=== PATIENT | male | born 1965 | race Native Hawaiian/Other Pacific Islander ===

== ENCOUNTER 2017-01-28 13:05 | Emergency (ER) | payer OTHER ==
[~2017-01-28] VITALS: Ht 180.3 cm; Wt 79.5 kg
[~2017-01-28 13:05] MED LIST: TRAM50 PO; Z.0.NO CURRENT MEDS
[2017-01-28 13:07] VITALS: BP 175/96; PULSE 94; RESP 18; TEMP 99.3; O2SAT 98
[2017-01-28 13:12] VITALS: BP 176/96; PULSE 78; RESP 18
[2017-01-28] MEDS ORDERED: SODIUM CHLORIDE 0.9% FLUSH 10 ML FLUSH IV FLUSH PRN (13:15)
[2017-01-28] MEDS ORDERED: KETOROLAC TROMETHAMINE 30 MG/ML (IVP) VIAL IV PUSH ONE (13:15)
[2017-01-28] MEDS ORDERED: SODIUM CHLOR 0.9% 1000 ML INJ 1,000 ML IV ONE (13:15)
[2017-01-28] MEDS ORDERED: ONDANSETRON HCL 4 MG/2 ML VIAL IV PUSH ONE (13:15)
[2017-01-28 13:44] LABS: CHLORIDE 103 MEQ/L (98-107); POTASSIUM 3.6 MEQ/L (3.5-5.1); SODIUM (NA) 139 MEQ/L (136-145)
[2017-01-28 13:48] LABS: ANION GAP 9 MEQ/L (5-15); BICARBONATE 27.5 MEQ/L (21.0-32.0); BLOOD UREA NITROGEN 16 MG/DL (7-18)
[2017-01-28 13:51] LABS: ALT (GPT) 29 U/L (12-78); AST (GOT) 20 U/L (15-37); GLOMERULAR FILTRATION RATE 58 ML/MIN (>89)
--- NOTE | 2017-01-28 13:51 | PD ---
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 Patient describes the pain to be colicky nature and comes and goes. He has been having bowel movement which is normal. No blood in the stool. He has been nauseous but did not vomit yet. This morning he was at work when he started to feel sick and decided to come to the emergency room. No similar pain in the past. Patient appears to be in some distress. No aggravating or relieving factors identified. Pain is paroxysmal in nature. [facility] Past Medical History Narrative Medical List of his past medical, surgical, social and family history is reviewed from the nursing note. Cardiovascular Problems: Yes (HTN) Hypertension: Yes Social History Alcohol Use: No Tobacco Use: No Substance Use: No Allergies-Medications (Allergen,Severity, Reaction): Coded Allergies: penicillin G (Unverified Allergy, Severe, TACHYCARDIA, 01/28/17) Comments List of his allergies reviewed from the nursing note. Reported Meds & Prescriptions Reported Meds & Active Scripts Active Zofran Odt (Ondansetron Odt) 4 Mg Tab 4 Mg SL Q6HR PRN Hydrocodone-Acetaminophen 5-325 mg Tab 1 Tab PO Q6H PRN Flomax (Tamsulosin HCl) 0.4 Mg Cap 0.4 Mg PO HS Reported Amlodipine (Amlodipine Besylate) 5 Mg Tab 5 Mg PO DAILY Narrative Medication list of his home medications reviewed from the nursing note. Review of Systems Except as stated in HPI: all other systems reviewed are Neg Physical Exam Narrative GENERAL: Awake, alert, no obvious distress SKIN: Focused skin assessment warm/dry. HEAD: Atraumatic. Normocephalic. EYES: Pupils equal and round. No scleral icterus. No injection or drainage. ENT: No nasal bleeding or discharge. Mucous membranes pink and moist. NECK: Trachea midline. No JVD. CARDIOVASCULAR: Regular rate and rhythm. No murmur appreciated. RESPIRATORY: No accessory muscle use. Clear to auscultation. Breath sounds equal bilaterally. GASTROINTESTINAL: Abdomen soft, non-tender, nondistended. Hepatic and splenic margins not palpable. MUSCULOSKELETAL: No obvious deformities. No clubbing. No cyanosis. No edema. NEUROLOGICAL: Awake and alert. No obvious cranial nerve deficits. Motor grossly within normal limits. Normal speech. PSYCHIATRIC: Appropriate mood and affect; insight and judgment normal. Data Data Last Documented VS Vital Signs Date Time Temp Pulse Resp B/P (MAP) Pulse Ox O2 Delivery O2 Flow Rate FiO2 01/28/17 14:42 96 18 169/99 (122) 98 01/28/17 14:08 Room Air 01/28/17 13:07 99.3 Orders Orders Complete Blood Count With Diff (01/28/17 13:11) Comprehensive Metabolic Panel (01/28/17 13:11) Lipase (01/28/17 13:11) Urinalysis - C+S If Indicated (01/28/17 13:11) Ct Abd/Pel W/O Iv Contrast (01/28/17 13:11) Iv Access Insert/Monitor (01/28/17 13:11) Ecg Monitoring (01/28/17 13:11) Oximetry (01/28/17 13:11) Sodium Chloride 0.9% Flush (Ns Flush) (01/28/17 13:15) Ketorolac Inj (Toradol Inj) (01/28/17 13:15) Sodium Chlor 0.9% 1000 Ml Inj (Ns 1000 M (01/28/17 13:15) Ondansetron Inj (Zofran Inj) (01/28/17 13:15) Strain Urine PRN (01/28/17 14:21) Tamsulosin (Flomax) (01/28/17 14:30) Labs Laboratory Tests Test 01/28/17 13:20 White Blood Count 14.4 TH/MM3 Red Blood Count 6.01 MIL/MM3 Hemoglobin 15.7 GM/DL Hematocrit 48.8 % Mean Corpuscular Volume 81.2 FL Mean Corpuscular Hemoglobin 26.2 PG Mean Corpuscular Hemoglobin Concent 32.2 % Red Cell Distribution Width 12.7 % Platelet Count 342 TH/MM3 Mean Platelet Volume 8.5 FL Neutrophils (%) (Auto) 84.2 % Lymphocytes (%) (Auto) 10.9 % Monocytes (%) (Auto) 4.2 % Eosinophils (%) (Auto) 0.3 % Basophils (%) (Auto) 0.4 % Neutrophils # (Auto) 12.1 TH/MM3 Lymphocytes # (Auto) 1.6 TH/MM3 Monocytes # (Auto) 0.6 TH/MM3 Eosinophils # (Auto) 0.0 TH/MM3 Basophils # (Auto) 0.1 TH/MM3 CBC Comment DIFF FINAL Differential Comment Urine Collection Type VOIDED Urine Color YELLOW Urine Turbidity SLIGHT Urine pH 7.0 Urine Specific [place] 1.027 Urine Protein TRACE mg/dL Urine Glucose (UA) NEG mg/dL Urine Ketones NEG mg/dL Urine Occult Blood LARGE Urine Nitrite NEG Urine Bilirubin NEG Urine Leukocyte Esterase NEG Urine RBC 25-49 /hpf Urine WBC 0-2 /hpf Urine Mucus RARE /lpf Microscopic Urinalysis Comment CULT NOT INDICATED Blood Urea Nitrogen 16 MG/DL Creatinine 1.30 MG/DL Random Glucose 127 MG/DL Total Protein 7.8 GM/DL Albumin 3.9 GM/DL Calcium Level 8.7 MG/DL Alkaline Phosphatase 115 U/L Aspartate Amino Transf (AST/SGOT) 20 U/L Alanine Aminotransferase (ALT/SGPT) 29 U/L Total Bilirubin 0.7 MG/DL Sodium Level 139 MEQ/L Potassium Level 3.6 MEQ/L Chloride Level 103 MEQ/L Carbon Dioxide Level 27.5 MEQ/L Anion Gap 9 MEQ/L Estimat Glomerular Filtration Rate 58 ML/MIN Lipase 73 U/L MDM Medical Decision Making Medical Screen Exam Complete: Yes Emergency Medical Condition: Yes Medical Record Reviewed: Yes Differential Diagnosis Acute diverticulitis, renal colic, acute gastroenteritis Narrative Course 1:50 PM awaiting for the blood test results and the CAT scan to be done and resulted. Patient was given IV Zofran and IV fluid bolus. I ordered IV Toradol but he had refused to take it. Patient had a large emesis and says the pain is little better since then. 2:24 PM blood test results show leukocytosis but rest of the test results are within acceptable limit. UA shows hematuria. CT scan was read by the radiologist as 2 mm stone in the UVJ. I went and let Dr. Bautista know about these test results. He was given a copy of all the results as well. He let me know that his pain was completely gone at this point in which case my speculation would be that he has passed the stone into the bladder. He will be given a dose of Flomax and a urine strainer to go home with. Procedures EKG Prior to Arrival: No Diagnosis Primary Impression: Ureteral colic Referrals: Jacob Keith MD 3 days Additional Instructions: Please drink lots of fluid to keep herself hydrated and passage of urine any easy. Take the medication as per the prescription direction. The pain medication is when the pain gets severe. However it'll make you groggy and hence he should not be driving while on it. Return to the ER if the condition worsens or any other new concerns. Follow-up with the urologist whose name and number been given to you. Urinate through the strainer so that when he passed the stone you can collected and take it with you to the urologist for analysis. Med/Other Pt SpecificInfo: Prescription(s) given Scripts Tamsulosin (Flomax) 0.4 Mg Cap 0.4 MG PO HS for Manage Prostate Problems, #10 CAP 0 Refills Prov: Osmany Gomez MD 01/28/17 Disposition: 01 DISCHARGE HOME Condition: Stable Osmany Gomez MD Jan 28, 2017 13:51
[2017-01-28 13:52] LABS: AUTOMATED NEUTROPHIL # 12.1 TH/MM3 (1.8-7.7); BASOPHIL # 0.1 TH/MM3 (0-0.2); BASOPHIL % 0.4 % (0.0-2.0); BLOOD, URINE LARGE (NEG); EOSINOPHIL % 0.3 % (0.0-4.0); GLUCOSE,URINE NEG (NEG); HEMATOCRIT 48.8 % (39.0-51.0); HEMO FLAGS DIFF FINAL; KETONE, URINE NEG (NEG); LYMPH % 10.9 % (9.0-44.0); LYMPHOCYTE # 1.6 TH/MM3 (1.0-4.8); MEAN CELL VOLUME 81.2 FL (80.0-100.0); MEAN CORPUSCULAR HEMOGLOBIN 26.2 PG (27.0-34.0); MEAN CORPUSCULAR HGB CONC 32.2 % (32.0-36.0); MONO % 4.2 % (0.0-8.0); NEUT % 84.2 % (16.0-70.0); NITRITE,URINE NEG (NEG); PLATELET COUNT 342 TH/MM3 (150-450); RED BLOOD COUNT 6.01 MIL/MM3 (4.50-5.90); RED CELL DISTRIBUTION WIDTH 12.7 % (11.6-17.2); TOTAL BILIRUBIN ADULT 0.7 MG/DL (0.2-1.0); WHITE BLOOD COUNT 14.4 TH/MM3 (4.0-11.0)
[2017-01-28 13:54] LABS: ALKALINE PHOSPHATASE 115 U/L (45-117)
[2017-01-28 14:07] LABS: METHOD OF COLLECTION VOIDED; URINE COLOR YELLOW (YELLW/STRAW)
[2017-01-28 14:08] VITALS: BP 169/100; PULSE 106; RESP 18
[2017-01-28 14:08] LABS: WBC, URINE 0-2 /hpf (0-5)
--- NOTE | 2017-01-28 14:08 | RADRPT ---
EXAM DATE/TIME: 01/28/2017 13:52 [facility] COMPARISON: No previous studies available for comparison. INDICATIONS : Left and central lower quadrant pain. Nausea and vomiting. ORAL CONTRAST: No oral contrast ingested. RADIATION DOSE: 9.98 CTDIvol (mGy) MEDICAL HISTORY : None SURGICAL HISTORY : None. ENCOUNTER: Initial ACUITY: 1 day PAIN SCALE: 6/10 LOCATION: Left lower quadrant TECHNIQUE: Volumetric scanning of the abdomen and pelvis was performed. Using automated exposure control and ad justment of the mA and/or kV according to patient size, radiation dose was kept as low as reasonably achievable to obtain optimal diagnostic quality images. DICOM format image data is available electro nically for review and comparison. FINDINGS: LOWER LUNGS: The visualized lower lungs are clear. LIVER: Gallstones the benign appearing gallbladder. Liver is of normal size. SPLEEN: Normal size without lesion. PANCREAS: Within normal limits. KIDNEYS: Normal in size and shape. There is mild dilatation of the left ureter without perinephric stranding. There are 2 tiny calcifications in the expected location of the left UVJ. ADRENAL GLANDS: Within normal limits. VASCULAR: There is no aortic aneurysm. BOWEL/MESENTERY: There is mildly prominent appendix without inflammatory changes. ABDOMINAL WALL: Within normal limits. RETROPERITONEUM: There is no lymphadenopathy. BLADDER: No wall thickening or mass. REPRODUCTIVE: Negative INGUINAL: There is no lymphadenopathy or hernia. MUSCULOSKELETAL: Within normal limits for patient age. CONCLUSION: 1. Gallstones in the benign appearing gallbladder 2. Mildly prominent appendix without inflammatory change 3. Mild dilatation left ureter with 2 mm apparent stone left UVJ without obstruction. Bradley Vidales MD FACR on January 28, 2017 at 14:00 Board Certified Radiologist. This report was verified electronically.
[2017-01-28 14:09] LABS: COMMENT (UR) CULT NOT INDICATED; CULTURE IF INDICATED CULT NOT INDICATED; MUCUS URINE RARE /lpf (OCC)
[2017-01-28] MEDS ORDERED: AMLO5TAB2 PO (14:09)
[2017-01-28] MEDS ORDERED: TAMS5CAP PO (14:27)
[2017-01-28] MEDS ORDERED: ZOFR4TAB3 SL (14:27)
[2017-01-28] MEDS ORDERED: HYDR-3516 PO (14:27)
[2017-01-28] MEDS ORDERED: TAMSULOSIN HCL 0.4 MG CAP PO ONE (14:30)
[2017-01-28 14:42] VITALS: BP 169/99
== END 2017-01-28 14:52 | disposition home or self-care (01) ==
LOC: PHED 13:05
DX: N23 Unspecified renal colic (principal); R11.0 Nausea; D72.829 Elevated white blood cell count, unspecified; I10 Essential (primary) hypertension; Z86.79 Personal history of other diseases of the circulatory system
CPT/HCPCS: 74176; 80053; 81001; 83690; 85025; 96361; 96374; 99285; J2405; J7030

== ENCOUNTER 2017-01-29 17:17 | Observation (INO) | payer OTHER ==
[~2017-01-29 17:17] MED LIST changes: +AMLO5TAB2 PO; +HYDR-3516 PO; +TAMS5CAP PO; -TRAM50 PO; -Z.0.NO CURRENT MEDS; +ZOFR4TAB3 SL
[2017-01-29] MEDS ORDERED: ACETAMINOPHEN 325 MG TAB PO PRN (17:45)
[2017-01-29] MEDS ORDERED: BISACODYL 10 MG SUPP RECTAL PRN (17:45)
[2017-01-29] MEDS ORDERED: LACTULOSE SYRUP 20 GM/30 ML CUP PO PRN (17:45)
[2017-01-29] MEDS ORDERED: ONDANSETRON HCL 4 MG/2 ML VIAL IVP PRN (17:45)
[2017-01-29] MEDS ORDERED: NALOXONE HCL 0.4 MG/ML AMP IV PUSH PRN (17:45)
[2017-01-29] MEDS ORDERED: SODIUM CHLORIDE 0.9% FLUSH 10 ML FLUSH IV FLUSH PRN (17:45)
[2017-01-29] MEDS ORDERED: SENNOSIDES 8.6 MG TAB PO PRN (17:45)
[2017-01-29] MEDS ORDERED: MAGNESIUM HYDROXIDE SUSP 30 ML CUP PO PRN (17:45)
[2017-01-29 17:50] VITALS: BP 155/101; PULSE 93; RESP 20; TEMP 99.2; O2SAT 97
[2017-01-29] MEDS: SODIUM CHLOR 0.9% 1000 ML INJ 1,000 ML IV SCH (18:00)
[2017-01-29] MEDS ORDERED: ACETAMINOPHEN/HYDROcodone 325 MG/5 MG TAB PO PRN (18:00)
[2017-01-29] MEDS: amLODIPine BESYLATE 5 MG TAB PO SCH (18:47)
[2017-01-29] MEDS: HYDROmorphone HCL PF 1 MG/ML VIAL IV PUSH PRN (18:48)
[2017-01-29] MEDS: PANTOPRAZOLE SOD 40 MG DELAYED RELEASE TAB PO SCH (18:54)
[2017-01-29 20:00] VITALS: BP 136/78; PULSE 90; RESP 17; TEMP 97; O2SAT 98
[2017-01-29] MEDS: SODIUM CHLORIDE 0.9% FLUSH 10 ML FLUSH IV FLUSH SCH (20:47)
[2017-01-29] MEDS: DOCUSATE SODIUM 50 MG/SENNA 8.6 MG TAB PO SCH (20:52)
[2017-01-29] MEDS ORDERED: TAMSULOSIN HCL 0.4 MG CAP PO SCH (21:00)
[2017-01-29 22:18] LABS: HEMATOCRIT 46.2 % (39.0-51.0); MEAN CELL VOLUME 82.2 FL (80.0-100.0); MEAN CORPUSCULAR HEMOGLOBIN 26.7 PG (27.0-34.0); MEAN CORPUSCULAR HGB CONC 32.5 % (32.0-36.0); PLATELET COUNT 314 TH/MM3 (150-450); RED BLOOD COUNT 5.62 MIL/MM3 (4.50-5.90); RED CELL DISTRIBUTION WIDTH 13.5 % (11.6-17.2); REVIEW FLAG FINAL; WHITE BLOOD COUNT 14.3 TH/MM3 (4.0-11.0)
[2017-01-30] MEDS: SODIUM CHLOR 0.9% 1000 ML INJ 1,000 ML IV SCH ×3 (00:15→12:18)
[2017-01-30 01:46] VITALS: BP 116/71; PULSE 101; RESP 20; TEMP 98.7; O2SAT 97
[2017-01-30 03:34] LABS: ALKALINE PHOSPHATASE 108 U/L (45-117); ALT (GPT) 30 U/L (12-78); ANION GAP 9 MEQ/L (5-15); AST (GOT) 31 U/L (15-37); BICARBONATE 27.7 MEQ/L (21.0-32.0); BLOOD UREA NITROGEN 17 MG/DL (7-18); CHLORIDE 100 MEQ/L (98-107); GLOMERULAR FILTRATION RATE 58 ML/MIN (>89); POTASSIUM 3.4 MEQ/L (3.5-5.1); SODIUM (NA) 137 MEQ/L (136-145); TOTAL BILIRUBIN ADULT 0.7 MG/DL (0.2-1.0)
[2017-01-30 05:46] VITALS: BP 130/81; PULSE 101; RESP 20; TEMP 98.6; O2SAT 97
[2017-01-30 07:16] LABS: BLOOD, URINE MOD (NEG); COMMENT (UR) CULT NOT INDICATED; CULTURE IF INDICATED CULT NOT INDICATED; GLUCOSE,URINE NEG (NEG); KETONE, URINE NEG (NEG); MUCUS URINE FEW /lpf (OCC); NITRITE,URINE NEG (NEG); URINE COLOR LIGHT-YELLOW (YELLW/STRAW)
[2017-01-30 07:17] LABS: AUTOMATED NEUTROPHIL # 6.1 TH/MM3 (1.8-7.7); BASOPHIL # 0.1 TH/MM3 (0-0.2); BASOPHIL % 0.5 % (0.0-2.0); EOSINOPHIL # 0.4 TH/MM3 (0-0.4); EOSINOPHIL % 3.4 % (0.0-4.0); HEMATOCRIT 40.2 % (39.0-51.0); HEMO FLAGS DIFF FINAL; LYMPH % 29.8 % (9.0-44.0); LYMPHOCYTE # 3.2 TH/MM3 (1.0-4.8); MEAN CELL VOLUME 82.1 FL (80.0-100.0); MEAN CORPUSCULAR HEMOGLOBIN 27.5 PG (27.0-34.0); MEAN CORPUSCULAR HGB CONC 33.6 % (32.0-36.0); MONO % 9.2 % (0.0-8.0); NEUT % 57.1 % (16.0-70.0); PLATELET COUNT 270 TH/MM3 (150-450); RED CELL DISTRIBUTION WIDTH 13.4 % (11.6-17.2); WHITE BLOOD COUNT 10.7 TH/MM3 (4.0-11.0)
[2017-01-30 07:50] LABS: ALKALINE PHOSPHATASE 89 U/L (45-117); ALT (GPT) 24 U/L (12-78); ANION GAP 7 MEQ/L (5-15); AST (GOT) 26 U/L (15-37); BICARBONATE 25.2 MEQ/L (21.0-32.0); BLOOD UREA NITROGEN 13 MG/DL (7-18); CHLORIDE 106 MEQ/L (98-107); GLOMERULAR FILTRATION RATE 89 ML/MIN (>89); POTASSIUM 3.5 MEQ/L (3.5-5.1); SODIUM (NA) 138 MEQ/L (136-145); TOTAL BILIRUBIN ADULT 0.9 MG/DL (0.2-1.0)
[2017-01-30 08:00] VITALS: BP 122/58; PULSE 105; RESP 16; TEMP 98; O2SAT 99
[2017-01-30] MEDS: DOCUSATE SODIUM 50 MG/SENNA 8.6 MG TAB PO SCH (08:26)
[2017-01-30] MEDS: SODIUM CHLORIDE 0.9% FLUSH 10 ML FLUSH IV FLUSH SCH (08:26)
[2017-01-30] MEDS: amLODIPine BESYLATE 5 MG TAB PO SCH ×2 (08:27→12:30)
[2017-01-30] MEDS: PANTOPRAZOLE SOD 40 MG DELAYED RELEASE TAB PO SCH (08:27)
--- NOTE | 2017-01-30 10:12 | HHI.PR ---
Subjective History of Present Illness Patient deny any nausea/ vomiting no fever/ chill no blood in urine low potassium resolved loin to groin pain resolved. ok to discharge home today if ok with urology. Review of Systems Constitutional Constitutional: Fatigue, Weakness Vitals/Results Vital Signs Vital Signs Date Time Temp Pulse Resp B/P (MAP) Pulse Ox O2 Delivery O2 Flow Rate FiO2 01/30/17 08:00 98.0 105 16 122/58 (79) 99 01/30/17 05:46 98.6 101 20 130/81 (97) 97 01/30/17 01:46 98.7 101 20 116/71 (86) 97 01/29/17 20:00 97.0 90 17 136/78 (97) 98 01/29/17 17:50 99.2 93 20 155/101 (119) 97 CBC/BMP: 01/30/17 0453 01/30/17 0453 Lab Results Laboratory Tests Test 01/29/17 18:50 01/30/17 04:53 01/30/17 06:30 White Blood Count 14.3 TH/MM3 10.7 TH/MM3 Red Blood Count 5.62 MIL/MM3 4.90 MIL/MM3 Hemoglobin 15.0 GM/DL 13.5 GM/DL Hematocrit 46.2 % 40.2 % Mean Corpuscular Volume 82.2 FL 82.1 FL Mean Corpuscular Hemoglobin 26.7 PG 27.5 PG Mean Corpuscular Hemoglobin Concent 32.5 % 33.6 % Red Cell Distribution Width 13.5 % 13.4 % Platelet Count 314 TH/MM3 270 TH/MM3 Mean Platelet Volume 8.2 FL 8.4 FL Blood Urea Nitrogen 17 MG/DL 13 MG/DL Creatinine 1.31 MG/DL 0.90 MG/DL Random Glucose 100 MG/DL 89 MG/DL Total Protein 7.5 GM/DL 6.1 GM/DL Albumin 3.9 GM/DL 3.1 GM/DL Calcium Level 9.2 MG/DL 8.5 MG/DL Alkaline Phosphatase 108 U/L 89 U/L Aspartate Amino Transf (AST/SGOT) 31 U/L 26 U/L Alanine Aminotransferase (ALT/SGPT) 30 U/L 24 U/L Total Bilirubin 0.7 MG/DL 0.9 MG/DL Sodium Level 137 MEQ/L 138 MEQ/L Potassium Level 3.4 MEQ/L 3.5 MEQ/L Chloride Level 100 MEQ/L 106 MEQ/L Carbon Dioxide Level 27.7 MEQ/L 25.2 MEQ/L Anion Gap 9 MEQ/L 7 MEQ/L Estimat Glomerular Filtration Rate 58 ML/MIN 89 ML/MIN Neutrophils (%) (Auto) 57.1 % Lymphocytes (%) (Auto) 29.8 % Monocytes (%) (Auto) 9.2 % Eosinophils (%) (Auto) 3.4 % Basophils (%) (Auto) 0.5 % Neutrophils # (Auto) 6.1 TH/MM3 Lymphocytes # (Auto) 3.2 TH/MM3 Monocytes # (Auto) 1.0 TH/MM3 Eosinophils # (Auto) 0.4 TH/MM3 Basophils # (Auto) 0.1 TH/MM3 CBC Comment DIFF FINAL Differential Comment Urine Color LIGHT-YELLOW Urine Turbidity CLEAR Urine pH 7.0 Urine Specific [place] 1.010 Urine Protein NEG mg/dL Urine Glucose (UA) NEG mg/dL Urine Ketones NEG mg/dL Urine Occult Blood MOD Urine Nitrite NEG Urine Bilirubin NEG Urine Urobilinogen LESS THAN 2.0 MG/DL Urine Leukocyte Esterase NEG Urine RBC 47 /hpf Urine WBC 4 /hpf Urine Mucus FEW /lpf Microscopic Urinalysis Comment CULT NOT INDICATED Physical Exam General General Appearance: Well Developed, Well Nourished, No Acute Distress, Comfortable Eyes Eye Exam: Sclera White, Extraocular Movement Intact Throat Throat Exam: Oral Mucosa [place] & Moist, Oral Pharynx Normal Neck Neck Exam: Neck Supple, Trachea Midline Pulmonary Resp Exam: Clear Bilaterally, Breath Sounds Equal, No Distress Cardiology CV Exam: Regular, Normal Sinus Rhythm Gastrointestinal/Abdomen GI Exam: Soft, Non-Tender, Bowel Sounds Present Musculoskeletal MS Exam: Joints Intact Integumentary Skin Exam: Clear, Warm, Dry, Intact Extremeties Extremities Exam: No Edema Neurologic Neuro Exam: Alert, Awake, Oriented, Speech Clear, Moving All Extremities, No Focal Deficits Psychiatric Psych Exam: Appropriate Responses PUD Prophylasis PUD Prophylaxis: Protonix Assessment/Plan Assessment/Plan ASSESSMENT AND PLAN 1. This is a 51-year-old [place] male admitted and diagnosed with left-sided loin to groin pain, most likely secondary to a renal stone. Urology is input noted. The patient is on Dilaudid for pain and also Lortab. The patient is also on Flomax 0.4 mg p.o. daily. 2. History of hypertension. Continue with amlodipine 5 mg p.o. daily. Will monitor blood pressure. 3. Mild leukocytosis, which has resolved. 4. Mild hypokalemia, which has resolved. 5. Low total protein of 6.1 and low albumin of 3.1. 6. DVT prophylaxis. SCDs. 7. GI prophylaxis. Pepcid 20 mg p.o. daily. ok to discharge home today if ok with urology. f/u with PCP/ Urology 1 week. Discussed Condition with: Patient Fermín Dugan MD Jan 30, 2017 10:12
[2017-01-30] MEDS ORDERED: ONDANSETRON ODT 4 MG TAB SL PRN (10:15)
[2017-01-30] MEDS ORDERED: HYDR-3516 PO (10:17)
[2017-01-30] MEDS ORDERED: ZOFR4TAB3 SL (10:17)
--- NOTE | 2017-01-30 11:49 | MH ---
cc: FERMÍN MAR MD DATE OF ADMISSION: 01/29/2017 CHIEF COMPLAINT Left-sided loin to groin pain for two days. 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 He is my patient and he complaining of left-sided loin to groin pain which was about 7-8/10. He had some blood in the urine. He was seen by the urologist recently and diagnosed with a 2 mm stone at the ureteropelvic junction. The patient has some mild hematuria and also has pain which is sharp in nature and radiates from loin to groin. He denies any diarrhea. He had some nausea and vomiting yesterday and vomited two times. He feels very weak and tired. Denies any chest pain or shortness of breath. Denies any black stool or blood in the stool. Denies any headache. Denies any blurred vision. Denies any other symptoms. Other than that nothing significant. PAST MEDICAL HISTORY Hypertension. PAST SURGICAL HISTORY Nothing significant. SOCIAL HISTORY Does not smoke, drink or take any drugs. He lives at home. He is . 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 FAMILY HISTORY Significant for hypertension, diabetes mellitus and benign prostatic hypertrophy. ALLERGIES PENICILLIN. MEDICATIONS 1. Amlodipine 5 mg p.o. daily. 2. Flomax 0.4 mg p.o. h.s. 3. Lortab 5/325 p.o. q.6h. p.r.n. pain. 4. Zofran 4 mg q.6h. REVIEW OF SYSTEMS All review of systems are negative except for pain in the loin to groin, and some nausea. Had some nausea. PHYSICAL EXAMINATION GENERAL: This is a 51-year-old male sitting on the bed, not in acute distress. VITAL SIGNS: Temperature 98.0, heart rate 105, respirations 16, blood pressure 122/58. O2 saturation 99% on room air. HEENT: Normocephalic, atraumatic. EOMI. PERRL. Oral mucosa moist. NECK: Supple. No visible thyromegaly or neck mass. Trachea is central. HEART: Regular rate and rhythm. LUNGS: Respirations clear to auscultation bilaterally. ABDOMEN: Soft. Mildly tender in the left groin area. Bowel sounds audible. EXTREMITIES: No cyanosis. No clubbing. Full range of motion of all extremities. NEUROLOGIC: Awake, alert, oriented x4. No focal deficits. SKIN: Warm and dry. PSYCHIATRIC: The patient is cooperative. Mood and affect are normal. LABORATORY CBC is unremarkable except for WBC count 14.3, now 10.7; hemoglobin 15.0, now 13.5; platelet count 314, now 270; mono is high at 9.2. BMP is unremarkable except for potassium 3.4, now 3.5. Total protein is 6.1 low. Albumin is 3.1 low. Urine examination showed moderate occult blood with 47 rbc. ASSESSMENT AND PLAN 1. This is a 51-year-old Vietnamese male admitted and diagnosed with left-sided loin to groin pain, most likely secondary to a renal stone. Urology is consulted. The patient is on Dilaudid for pain and also Lortab. The patient is also on Flomax 0.4 mg p.o. daily. 2. History of hypertension. Continue with amlodipine 5 mg p.o. daily. Will monitor blood pressure. 3. Mild leukocytosis, which has resolved. 4. Mild hypokalemia, which has resolved. 5. Low total protein of 6.1 and low albumin of 3.1. 6. DVT prophylaxis. SCDs. 7. GI prophylaxis. Pepcid 20 mg p.o. daily. 8. We are going to manage the patient on a daily basis and make recommendation on a daily basis. Fermín Mar MD EA/YAMILET /9:57 AM /11:20 AM
[2017-01-30 12:00] VITALS: BP 150/92; PULSE 92; RESP 18; TEMP 97.9; O2SAT 98
--- NOTE | 2017-01-30 14:20 | RADRPT ---
EXAM DATE/TIME: 01/30/2017 13:07 [facility] COMPARISON: CT ABDOMEN & PELVIS W/O CONTRAST, January 28, 2017, 13:52. INDICATIONS : Hydronephrosis. MEDICAL HISTORY : Hypertension. Hematuria. SURGICAL HISTORY : None. ENCOUNTER: Initial ACUITY: 1 day PAIN SCORE: 2/10 LOCATION: Bilateral flank MEASUREMENTS: RIGHT KIDNEY: 11.6 x 4.9 x 6.8 cm LEFT KIDNEY: 10.5 x 5.4 x 5.6 cm FINDINGS: RIGHT KIDNEY: Renal cortex is normal in thickness and echotexture. No hydronephrosis, stone, or mass. LEFT KIDNEY: Renal cortex is normal in thickness and echotexture. No hydronephrosis, stone, or mass. BLADDER: There is a 10 mm echogenic focus in the dependent posterior left bladder base which may be a passed s tone. Post void bladder volume is negligible CONCLUSION: Unremarkable appearance of the kidneys. Likely passed stone in the dependent bladder Miguel Angel Viveros MD on January 30, 2017 at 14:12 Board Certified Radiologist. This report was verified electronically.
--- NOTE | 2017-01-30 14:27 | RADRPT ---
EXAM DATE/TIME: 01/30/2017 13:40 [facility] COMPARISON: CT ABDOMEN & PELVIS W/O CONTRAST, January 28, 2017, 13:52. INDICATIONS : Renal calculi. MEDICAL HISTORY : None. SURGICAL HISTORY : None. ENCOUNTER: Initial ACUITY: 1 day PAIN SCORE: 8/10 LOCATION: Bilateral abdominal FINDINGS: The described calcification is no longer apparent on the single pelvic film. I do not seen in the bl adder either. Correlation is suggested. CONCLUSION: No residual calcifications. Bradley Vidales MD FACR on January 30, 2017 at 14:23 Board Certified Radiologist. This report was verified electronically.
[2017-01-30] MEDS: HYDROmorphone HCL PF 1 MG/ML VIAL IV PUSH PRN (15:58)
[2017-01-30 16:00] VITALS: BP 141/90; PULSE 89; TEMP 98; O2SAT 98
--- NOTE | 2017-01-30 16:31 | HHI.PR ---
Addendum to Inpatient Note Addendum Reason: Additional Documentation Additional Information Dictated consult note from earlier not transcribed at this time. KUB, Renal U/S reviewed. No evidence of hydronephrosis of ultrasound with calcification in bladder, indicating he likely passed the stone. From standpoint, ok to d/c home. No intervention required at this time. F/U as outpatient. Dhaval Navarro MD Jan 30, 2017 16:31
--- NOTE | 2017-01-30 16:38 | MB ---
cc: DHAVAL BROWN MD, EVAN D. M.D. DATE OF CONSULTATION 01/30/2017 REASON FOR CONSULTATION 1. Left distal ureteral calculi. 2. Left hydronephrosis. 3. Left flank pain. 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 CT at that time showed two separate distal ureteral calculi with mild left hydronephrosis. He was managed conservatively and was sent home. However, while he was at home he was unable to hold any fluid down and his urine output decreased. He called a local urologist who recommend he go back to the ER so he would be admitted. He was admitted last night. Continued to have left-sided groin pain and nausea. He was given one dose of Dilaudid and his pain resolved. Over the course of the night he has had minimal pain but does feel some fullness on his left side. Denies any further episodes of blood clots or hematuria. Denies dysuria, urgency or frequency, fevers or chills. Denies prior history of kidney stones but his sister has had stones in the past. Denies diarrhea, any chest pain or shortness of breath. Denies any family history of prostate cancer. PAST MEDICAL HISTORY Hypertension. PAST SURGICAL HISTORY None. SOCIAL HISTORY Does not smoke, drink or take any drugs. He lives at home. 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 FAMILY HISTORY Significant for hypertension, diabetes. Denies urolithiasis or genitourinary malignancies. ALLERGIES PENICILLIN. MEDICATIONS Include: 1. Norvasc 5 milligrams p.o. daily. REVIEW OF SYSTEMS See HPI otherwise all systems reviewed and otherwise were negative. PHYSICAL EXAMINATION VITAL SIGNS: Temperature 98, pulse 105, respiratory rate 16, BP 122/58, satting 98% on room air. GENERAL: He is alert and oriented x3. No apparent distress, pleasant, cooperative, appears stated age. HEAD: Normocephalic, atraumatic. EYES: No scleral icterus. Extraocular muscles intact. NECK: Neck is supple. Trachea is midline. No JVD. LUNGS: Clear to auscultation bilaterally. No wheezes, rales or rhonchi. ABDOMEN: Soft, nontender, nondistended. Positive bowel sounds. GENITOURINARY: There is no CVA tenderness bilaterally. Penis is uncircumcised. Testes are descended bilaterally, normal size and consistency without mass. RECTAL: Denied pain at this time. EXTREMITIES: Nontender. No clubbing, cyanosis or edema. PSYCH: Normal affect. SKIN: No ulcers or rashes. [place] and moist LABORATORY DATA Labs show a white count 10.7, hemoglobin 13.5, hematocrit 40.2, platelet count 270, sodium of 138, potassium 3.5, chloride 106, bicarb 25.2, BUN 13, creatinine 0.90, glucose 89. Urine showed moderate blood. IMAGING STUDIES CT abdomen, pelvis without contrast images were reviewed, agree with radiologist report. The patient has two separate distal 2 mm ureteral calculi with mild hydronephrosis. PLAN The patient is a 51-year-old [place] who was admitted with left flank pain and nausea and found to have two separate distal small ureteral calculi with left hydronephrosis. The plan, recommend conservative management and trial of passage. Will continue Flomax, pain control and IV fluids. Will obtain a KUB and renal ultrasound to evaluate for stone disease. In lieu of his clinical picture worsening recommended he given a chance to pass the stones on his own as he has greater than 85% chance of passing these stones. He can then follow up as an outpatient with myself or his local urologist with repeat imaging in several weeks. Please call with any questions. Dhaval Brown MD EMKelly/SANDOVAL /12:00 PM /4:11 PM
[2017-01-30] MEDS ORDERED: FAMOTIDINE 20 MG TAB PO SCH (21:00)
== END 2017-01-30 17:47 | disposition home or self-care (01) ==
LOC: HOCB 17:17 → HOCA 17:41
PROVIDERS: ADMIT Family Medicine; ATTEND Family Medicine
DX: N20.1 Calculus of ureter (principal); I10 Essential (primary) hypertension; D72.829 Elevated white blood cell count, unspecified; E87.6 Hypokalemia
CPT/HCPCS: 74000; 76775; 76937; 80053; 81001; 85025; 85027; 96361; 96374; 96375; 96376; G0378; J1170; J2405; J7030

== ENCOUNTER → 2017-04-29 | Day surgery (SDC) | payer OTHER ==
[~2017-04-29] MED LIST changes: +PROPOFOL 200 MG/20 ML AMP IV ONE
--- NOTE | 2017-04-29 14:17 | GIPROC ---
[facility] [address] [facility], [id number] EGD PROCEDURE REPORT EXAM DATE: 04/29/2017 PATIENT NAME: Arnie Bautista MR #: [id number] BIRTHDATE: 1965 ATTENDING: Judy Dukes MD ORDER #: [id number] DIRECTOR OF THE BIOPHYSICS FACILITY: Asa Manuel RN STATUS: outpatient INDICATIONS: The patient is a 52 yr old male here for an EGD due to history of esophageal reflux PROCEDURE PERFORMED: EGD w/ biopsy MEDICATIONS: None and Per Anesthesia. TOPICAL ANESTHETIC: CONSENT: The patient understands the risks and benefits of the procedure and understands that these risks include, but are not limited to: sedation, allergic reaction, infection, perforation and/or bleeding. Alternative means of evaluation and treatment include, among others: physical exam, x-rays, and/or surgical intervention. The patient elects to proceed with this endoscopic procedure. medical equipment was checked for proper function. Hand hygiene and appropriate measures for infection prevention was taken. After the risks, benefits and alternatives of the procedure were thoroughly explained, Informed consent was verified, confirmed and timeout was successfully executed by the treatment team. The patient was anesthetized with topical anesthesia and the EG-[id number] ([id number]) endoscope was introduced through the mouth and advanced to the second portion of the duodenum. Retroflexed views revealed no abnormalities The gastroscope was then slowly withdrawn and removed. ESOPHAGUS: There was LA Class A esophagitis noted. A biopsy was performed using cold forceps. Sample sent for histology. STOMACH: There was erythematous moderate gastritis in the gastric body and gastric antrum. Cold forcep biopsies were taken at the antrum and angularis to evaluate for h. pylori. DUODENUM: The duodenal mucosa appeared normal in the bulb and second portion of the duodenum. ADVERSE EVENTS: There were no complications. IMPRESSIONS: 1. There was LA Class A esophagitis noted; biopsy was performed 2. There was erythematous gastritis in the gastric body and gastric antrum 3. Normal duodenal mucosa in the bulb and second portion of the duodenum 4. Retroflexed views revealed no abnormalities RECOMMENDATIONS: 1. Await biopsy results. Biopsy results will not be ready for 7-10 days. If you don't hear from us in two weeks, call our office for biopsy results. 2. Anti-reflux regimen 3. Protonix 40mg Q AM PATIENT CONDITION: stable DISPOSITION: Home REPEAT EXAM: Return 3 years EGD pending biopsy results Judy Dukes MD eSigned: Judy Dukes MD 04/29/2017 2:16 PM cc: Ayanna Mota PATIENT NAME: Arnie Bautista MR#: [id number]
== END | disposition home or self-care (01) ==
LOC: ESDC 13:36
PROVIDERS: ATTEND Internal Medicine Gastroenterology
DX: K21.9 Gastro-esophageal reflux disease without esophagitis (principal); K20.9 Esophagitis, unspecified; K29.70 Gastritis, unspecified, without bleeding
CPT/HCPCS: 00740; 43239; 88305; 88312; J3010